=== PATIENT | male | born 1995 | race Asian ===

== ENCOUNTER 2025-03-31 06:46 | Outpatient (REF) | payer OTHER, SELFPAY ==
--- NOTE | ~2025-03-31 | US_ITS ---
CLINICAL HISTORY: RUQ pain, r o Gallstones US abdomen complete Comparison: None Findings: The visualized pancreas is normal. Uncinate process and tail are not well seen due to bowel gas. The visualized aorta and inferior vena cava are normal caliber. The liver is normal in size, right lobe length is 14.6 cm. Normal in echogenicity, no discrete lesion is visualized in the imaged liver. No intrahepatic bile duct dilatation. The common duct is 2 mm in diameter. The gallbladder is normal. Negative sonographic Arita sign. The main portal vein is patent with antegrade flow. The right kidney is normal, 10.7 cm in length. The left kidney is normal, 10.7 cm in length. The spleen is normal, 10.0 cm in length. No free fluid in the abdomen. Impression: Normal exam. This document has been electronically signed by: Radha Moore MD on 04/01/2025 12:11:34
== END 2025-03-31 06:47 | disposition home or self-care (01) ==
LOC: HO.UMASIMG 06:46
PROVIDERS: Visit Provider Family Medicine
DX: R10.10 Upper abdominal pain, unspecified (principal)
CPT/HCPCS: 76700

== ENCOUNTER → 2025-03-31 10:02 | Outpatient (BNV) | payer OTHER, SELFPAY | PROVIDERS: Visit Provider Radiology Diagnostic Radiology | DX: R10.11 Right upper quadrant pain (principal) | CPT/HCPCS: 76700 ==